=== PATIENT | female | born 1985 | race Caucasian/White ===

== ENCOUNTER 2023-08-31 11:45 | Inpatient (IN) ==
[2023-08-31] MEDS: Buffered Lidocaine 1% SYRIN 1 ml INTRADERM ONE (14:53)
[2023-08-31] MEDS: Oxytocin in LR 20,000 MILLI.UNIT/1,000 ML BAG IV SCH (15:02)
[2023-08-31] MEDS: Lactated Ringers 1000 ml BAG 1,000 ML IV SCH (15:03)
[2023-08-31 15:08] LABS: ABS Basophils 0.1 10^3/uL (0.0-0.1); ABS Eosinophils 0.1 10^3/uL (0.0-0.5); ABS Lymphocytes 2.2 10^3/uL (1.0-4.8); ABS Monocytes 0.8 10^3/uL (0.0-0.9); ABS Nucleated RBC 0.01 10^3/ul; Eosinophil % 0.8 %; Hematocrit 35.1 % (35-45); Hemoglobin 11.9 g/dL (11.5-14.3); Lymphocyte % 16.8 %; Mean Corpuscular Hemoglobin 28.9 pg (27-33); Mean Corpuscular Hgb Conc 33.8 g/dL (31-36); Mean Corpuscular Volume 85.6 fL (80-97); Mean Platelet Volume 9.7 fL (7.5-11.2); Nucleated Red Blood Cells % 0.1 %/100WBC (0.0-0.8); Platelet Count 221 10^3/uL (150-450); Red Cell Distribution Width 13.2 % (12-17); White Blood Count 13.2 10^3/uL (3.8-11.8)
[2023-08-31 15:47] LABS: Albumin 3.7 g/dL (3.2-5.2); Albumin/Globulin Ratio 1.4 (1-3); Calcium 9.2 mg/dL (8.6-10.3); Creatinine, Serum 0.53 mg/dL (0.51-0.95); Globulin 2.7 g/dL (2-4); Potassium 4.1 mmol/L (3.5-5.0); Total Bilirubin 0.5 mg/dL (0.2-1.0); Total Protein 6.4 g/dL (6.4-8.9); eGFR CKD-EPI 122.8 (>60)
[2023-08-31 15:52] LABS: Urine Benzodiazepine Screen None Detected (None Detect); Urine Cannabinoids Screen None Detected (None Detect); Urine Opiates Screen None Detected (None Detect)
[2023-09-01] MEDS: Lactated Ringers 1000 ml BAG 1,000 ML IV ONE ×2 (00:18→12:55)
[2023-09-01] MEDS: OBEPIDURAL (200 ML) 200 ML EPIDURAL ONE (00:47)
[2023-09-01] MEDS ORDERED: Sodium Citrate/Citric Acid LIQ 15 ML UDC PO PRN (01:05)
[2023-09-01] MEDS ORDERED: Phenylephrine 40 mcg/mL 10mL (400mcg) SYRINGE IV PUSH PRN ×2 (01:05)
[2023-09-01] MEDS ORDERED: Lactated Ringers 1000 ml BAG 500 ML IV PRN ×2 (01:05)
[2023-09-01] MEDS: OBEPIDURAL (200 ML) 200 ML EPIDURAL SCH (02:23)
[2023-09-01 03:45] LABS: Urine Appearance Clear; Urine Bilirubin Negative (Negative); Urine Blood 1+ (Negative); Urine Color Yellow; Urine Glucose Negative (Negative); Urine Ketones 2+ (Negative); Urine Nitrite Negative (Negative); Urine Protein Trace (Negative); Urine Specific Gravity 1.023 (1.002-1.030); Urine Urobilinogen Negative (Negative); Urine pH 5.5 (5.0-8.0)
[2023-09-01 03:56] LABS: Urine Bacteria Absent /HPF (Absent); Urine Red Blood Cell 3+(>10/hpf) /HPF (0-Trace); Urine Squamous Epithelial Cell Present /HPF (Absent); Urine White Blood Cell Trace(0-5/hpf) /HPF (0-Trace)
[2023-09-01] MEDS: Lidocaine 1% VIAL 10 MG/ML 30 ML VIAL INJ PRN (10:45)
[2023-09-01] MEDS ORDERED: Glycerin ADULT 2.4 gm SUPP PR PRN (11:18)
[2023-09-01] MEDS ORDERED: Lactated Ringers 1000 ml BAG 1,000 ML IV SCH (12:00)
[2023-09-01] MEDS: Oxytocin in LR 20,000 MILLI.UNIT/1,000 ML BAG IV SCH (12:02)
[2023-09-01] MEDS: Dibucaine 1% OINT 28.35 GM TUBE PR PRN (12:06)
[2023-09-01] MEDS: Witch Hazel PAD JAR TOPICAL PRN (12:06)
[2023-09-01] MEDS: Lactated Ringers 1000 ml BAG 1,000 ML IV SCH ×2 (12:55)
[2023-09-01] MEDS: Lidocaine 1.5% EPI 1:200,000 30 ML SDV ONE (14:00)
[2023-09-02 07:15] LABS: ABS Basophils 0.1 10^3/uL (0.0-0.1); ABS Eosinophils 0.2 10^3/uL (0.0-0.5); ABS Lymphocytes 2.3 10^3/uL (1.0-4.8); ABS Neutrophils 13.4 10^3/uL (1.5-7.6); ABS Nucleated RBC 0.01 10^3/ul; Eosinophil % 1.2 %; Hemoglobin 10.2 g/dL (11.5-14.3); Lymphocyte % 13.4 %; Mean Corpuscular Hemoglobin 29.2 pg (27-33); Mean Corpuscular Volume 85.7 fL (80-97); Mean Platelet Volume 9.4 fL (7.5-11.2); Platelet Count 173 10^3/uL (150-450); Red Cell Distribution Width 13.1 % (12-17); White Blood Count 16.9 10^3/uL (3.8-11.8)
[2023-09-03 14:21] VITALS: BP 134/75
== END 2023-09-03 14:27 | disposition home or self-care (01) | DRG 560 ==
LOC: MCHOBOUT 11:45 → MCHOB 13:08
PROVIDERS: ADMIT Obstetrics & Gynecology; ATTEND Obstetrics & Gynecology